=== PATIENT | female | born 1995 | race American Indian/Alaskan Native ===

== ENCOUNTER 2022-03-12 22:26 | Emergency (ER) | payer OTHER ==
[2022-03-12 22:30] VITALS: BP 120/76
== END 2022-03-13 04:00 | disposition left against medical advice (07) ==
LOC: ED 22:26
DX: R22.31 Localized swelling, mass and lump, right upper limb (principal); Z53.21 Procedure and treatment not carried out due to patient leaving prior to being seen by health care provider

== ENCOUNTER 2022-03-15 21:27 | Emergency (ER) | payer OTHER ==
[2022-03-15 22:19] VITALS: BP 109/77
== END 2022-03-15 22:20 | disposition left against medical advice (07) ==
LOC: ED 21:27
DX: M25.449 Effusion, unspecified hand (principal); Z53.21 Procedure and treatment not carried out due to patient leaving prior to being seen by health care provider